=== PATIENT | female | born 1985 | race African-American/Black ===

== ENCOUNTER 2019-06-12 07:59 | Emergency (ER) | payer OTHER ==
--- NOTE | 2019-06-12 10:06 | RAD ---
RIGHT ANKLE 3 VIEWS: HISTORY: Pain, injury following a slip and fall. FINDINGS: Prominent soft tissue fullness and medially and laterally, somewhat more marked medially. Metal plat e and screws stabilize the distal fibula and 2 internal fixation screws stabilize the medial malleolu s. There is evidence for some osteophytosis changes off the distal fibula and medial malleolus as we ll as along the distal interosseous ligament. There is some arthrosis and degenerative changes of th e ankle joint. Prominent inferior calcaneal enthesophyte. IMPRESSION: Generalized soft tissue swelling. Postoperative changes. Arthrosis and degenerative and prominent e nthesophytic changes without acute fracture or dislocation. POS: [facility]
== END 2019-06-12 09:27 | disposition home or self-care (01) ==
LOC: ERS 07:59
DX: S93.401A Sprain of unspecified ligament of right ankle, initial encounter (principal); I10 Essential (primary) hypertension; W01.0XXA Fall on same level from slipping, tripping and stumbling without subsequent striking against object, initial encounter; Y99.0 Civilian activity done for income or pay